=== PATIENT | male | born 1995 | race African-American/Black ===

== ENCOUNTER 2019-11-12 15:46 | Emergency (ER) | payer BC, OTHER ==
[~2019-11-12] VITALS: Ht 165.1 cm; Wt 59.0 kg
[2019-11-12] MEDS ORDERED: NOHOMEMEDICATIONS (15:57)
[2019-11-12] MEDS ORDERED: NORFLEX100 MG PO (16:46)
[2019-11-12] MEDS ORDERED: NAPROSYN500 MG PO (16:46)
[2019-11-12 16:53] VITALS: BP 114/68
== END 2019-11-12 16:55 | disposition home or self-care (01) ==
LOC: ER 15:46
DX: S46.911A Strain of unspecified muscle, fascia and tendon at shoulder and upper arm level, right arm, initial encounter (principal); S39.012A Strain of muscle, fascia and tendon of lower back, initial encounter; X50.1XXA Overexertion from prolonged static or awkward postures, initial encounter; Y93.89 Activity, other specified; Y92.89 Other specified places as the place of occurrence of the external cause; Y99.8 Other external cause status